=== PATIENT | female | born 1980 | race Caucasian/White ===

== ENCOUNTER 2017-11-30 10:12 | Emergency (ER) | payer SELFPAY ==
[2017-11-30] MEDS: IBUPROFEN 800 MG TABLET. PO (10:30)
[2017-11-30] MEDS: HYDROcodone/APAP 5/325MG 1 TAB TABLET PO (10:36)
== END 2017-11-30 12:02 | disposition home or self-care (01) ==
LOC: ER 10:12
DX: S39.012A Strain of muscle, fascia and tendon of lower back, initial encounter (principal); X58.XXXA Exposure to other specified factors, initial encounter; Y93.89 Activity, other specified; Y92.89 Other specified places as the place of occurrence of the external cause; Y99.8 Other external cause status
CPT/HCPCS: 72100; 99284